=== PATIENT | female | born 1995 | race Caucasian/White ===

== ENCOUNTER → 2016-08-03 | Outpatient (CLI) | payer BC ==
[~2016-08-03] MED LIST: SULF-221 PO
[2016-08-03 19:44] VITALS: BP 136/102
--- NOTE | 2016-08-03 19:44 | Urgent Care T Sheet Gen (E) ---
Intake General Temperature (Fahrenheit): 98.9 Pulse: 90 Blood Pressure Systolic: 136 Blood Pressure Diastolic: 102 Respirations: 18 SPO2: 100 Chief Complaint: UC Genitourinary Complaint Description of Symptoms Comes in today for complaints of urinary symptoms and a sore lymph node in her left groin area. No vomiting, This all started Sunday night. No vaginal discharge. No blood in urine, no back pain, on BCP now. 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 Her is in dental school there. She states Sunday night and Sunday she actually peed the bed- wasn't sure if she was dreaming but never has done that before. No other symptoms- had a UTI in the past. Denies chills or body aches BP rechecked 122/80 Source: Patient History of Present Illness Onset & Duration: Days (x4) Timing: Still present Severity: Mild Recent Trauma: No Allergies: Coded Allergies: No Known Drug Allergies (Unverified , 08/03/16) Respiratory Constitutional Symptoms: No syptoms reported EENTM: No symptoms reported Respiratory: No symptoms reported Cardiovascular: No symptoms reported Genitourinary: Frequency Other (urgency, bedwetting accident x 2- no blood) Control/STD Prophylaxis: BC Pills All Other Systems Reviewed Remaining Systems: All other systems reviewed with negative findings Past Poyhpva-Cwqvjw-Ejeamf Hx Patient's Social History Alcohol Use: Denies Use Recreational Drug Use: Denies Use Surgeries/Hospitalizations Hospitalization/Surgery Hx: healthy Physical Exam Physical Exam General Appearance: WD/WN No apparent distress Eyes, Ears, Nose, Throat Ex: PERRL/EOMI Neck Exam: Full range of motion Supple Normal inspection Respiratory Exam: Lungs clear Normal breath sounds No respiratory distress No accessory muscles used Cardiovascular Exam: Regular rate, rhythm No murmur GI/ Exam: Non tender No organomegaly Normal bowel sounds Back Exam: Normal Inspection No CVA tenderness Skin Exam: Normal color Warm/dry/intact No rashes Other (left groin reveals pea size likely infected hair follicle from shaving, nontender, slight red no drainage, no induration) Progress/Orders Lab Results Labs Results: UA (normal excpet trace blood noted, no leukocytes, color clear, no odor), UA-UHCG (negative) Departure Urgent Care Impression Chief Complaint: UC Genitourinary Complaint Impression: Primary Impression: Urinary tract infection Qualified Code: N30.00 - Acute cystitis without hematuria Departure Disposition: HOME OR SELF-CARE Condition: Stable Referrals: CHRISTOPHER MOYER MD (PCP) Additional Instructions: Long talk with her- due to symptoms and finding will treat for UTI- Culture sent out to [facility] Tylenol or Aleve for pain or fever rest hydrate discussed wiping techniques, urinate after intercourse avoid bubble baths, swimming and being in wet clothes Observe left groin area- may use warm moist cloth for comfort. If it enlarges may need I&D but today small and nontender Discussed Bactrim can cause sun sensitive skin She agrees to all plan of care. F/U PCP as needed- we will notify her of culture when available B/P rechecked 122/80-- she has never had issues with BP before- healthy Scripts Sulfamethoxazole/Trimethoprim (Sulfamethoxazole/Trimethoprim DS 800mg/160mg)1 Each Tablet1 Each PO BID #10 TAB Prov:CHRISTINA WALSH APRN () 08/03/16 End of report . CHRISTINA WALSH APRN () August 03, 2016 19:44
--- NOTE | 2016-08-09 12:59 | Urgent Care Follow Up Note (E) ---
Urgent Care Follow Up Note Urine culture showed no growth. Scripts Sulfamethoxazole/Trimethoprim (Sulfamethoxazole/Trimethoprim DS 800mg/160mg)1 Each Tablet1 Each PO BID #10 TAB Prov:CHRISTINA WALSH APRN () 08/03/16 JENS BARROS August 09, 2016 12:59
== END ==
LOC: MHUC 19:09
PROVIDERS: ATTEND Nurse Practitioner
DX: N30.00 Acute cystitis without hematuria (principal)